=== PATIENT | male | born 1955 ===

== ENCOUNTER 2016-09-28 15:28 | Emergency (ER) | payer SELFPAY ==
--- NOTE | 2016-09-28 15:45 | ED PDOC ---
HPI: Psych/Substance Abuse Time Seen by Provider: 09/28/16 15:36 Chief Complaint (Nursing): Psychiatric Evaluation Chief Complaint (Provider): crisis eval History Per: Patient, EMS, Neuro Urologist (Lou Lester at bedside for Georgian translation) Additional Complaint(s): 61 year old male with no past medical history presents to ED for crisis eval. Patient went to [facility] today for evaluation of abdominal pain and possible high blood pressure and during evaluation he expressed that he was having problems with his family. Patient took a depression questionnaire and based on his answers, the clinic provider advised that he come to ED for crisis evaluation. Upon arrival patient denies suicidal or homicidal ideation. He does admit to having some stress in his life secondary to family problems but has no intention of harming himself or others. He went to the clinic initially for evaluation of abdominal pain for 5 days with increased flatulence. Patient also concerned that he may have high blood pressure. He states he was dizzy and had slight blurred vision 5 days ago but this has resolved and has not occurred again. Upon arrival to ED, patient denies any abd pain, chest pain, SOB, KEY, vision changes, dizziness, headache, fever, chills, vomiting or diarrhea. Past Medical History Reviewed: Historical Data, Nursing Documentation, Vital Signs Vital Signs: Last Vital Signs Temp 97.4 F L 09/28/16 15:29 Pulse 52 L 09/28/16 15:29 Resp 17 09/28/16 15:29 BP 136/87 09/28/16 15:29 Pulse Ox 98 09/28/16 15:29 - Medical History PMH: HTN - Surgical History Other surgeries: hiatal hernia repair - Family History Family History: States: No Known Family Hx - Living Arrangements Living Arrangements: With Family - Social History Current smoker - smoking cessation education provided: No Alcohol: None Drugs: Denies - Allergies Allergies/Adverse Reactions: Allergies Allergy/AdvReac Type Severity Reaction Status Date / Time No Known Allergies Allergy Verified 09/28/16 15:29 Review of Systems ROS Statement: Except As Marked, All Systems Reviewed And Found Negative Constitutional: Negative for: Fever, Chills Eyes: Negative for: Vision Change Gastrointestinal: Positive for: Abdominal Pain, Other (increased flatulence). Negative for: Nausea, Vomiting, Diarrhea Neurological: Negative for: Headache, Dizziness Psych: Positive for: Other (stressed, denies SI or HI) Physical Exam - Reviewed Nursing Documentation Reviewed: Yes Vital Signs Reviewed: Yes - Physical Exam Appears: Positive for: Well, Non-toxic, No Acute Distress Skin: Negative for: Rash Eye Exam: Positive for: Normal appearance, EOMI, PERRL Cardiovascular/Chest: Positive for: Regular Rate, Rhythm Respiratory: Positive for: Normal Breath Sounds. Negative for: Wheezing, Respiratory Distress Gastrointestinal/Abdominal: Positive for: Bowel Sounds (normoactive in all 4 quadrants), Soft, Other (obese, non-tender abdomen). Negative for: Tenderness, Distended, Guarding, Rebound Extremity: Positive for: Normal ROM. Negative for: Pedal Edema Neurologic/Psych: Positive for: Alert, Oriented - Laboratory Results Result Diagrams: 09/28/16 16:30 09/28/16 16:30 - ECG Interpretation Of ECG: Sinus april 47 bpm, no acute finding, reviewed by PA and ED attending O2 Sat by Pulse Oximetry: 98 Pulse Ox Interpretation: Normal - Other Rad KUB X-Ray: Interpreted by Me, Viewed By Me X-Ray Interpretation: moderate feces with no obstruction Medical Decision Making Medical Decision Makin61 year old sent by clinic for crisis eval. Also with abdominal pain and possible HTN BP normal Abdominal exam is benign upon arrival Plan Crisis eval CBC CMP Lipase UA KUB As per crisis counselor and psychiatrist front desk host Dr. Mary, patient does not meet criteria for psych admission. Patient is aware of all diagnostic testing results, all questions answered. Patient was advised to follow up with clinic in 2-3 days. He is aware he can return to ED if acutely worse anytime. Disposition - Clinical Impression Clinical Impression: Constipation, Depression - Patient ED Disposition Is Patient to be Admitted: No Counseled Patient/Family Regarding: Studies Performed, Diagnosis, Need For Followup - Disposition Referrals: [facility] [Outside] Disposition: Routine/Home Disposition Time: 18:23 Condition: STABLE Additional Instructions: FOLLOW UP AT: [facility] [address] [place] [address] INCREASE FIBER IN DIET. DRINK PLENTY OF WATER. FOLLOW UP WITH CLINIC. Instructions: Constipation (ED), High Fiber Diet (ED), Depression (ED) Print Language: MARTINIQUAIS Results - Lab Results Lab Results: 09/28/16 09/28/16 16:30 16:30 WBC 10.0 RBC 5.09 Hgb 15.7 Hct 46.1 MCV 90.5 MCH 30.8 MCHC 34.1 RDW 13.7 Plt Count 222 MPV 8.2 Neut % (Auto) 55.5 Lymph % (Auto) 34.9 Posey % (Auto) 7.4 Eos % (Auto) 1.7 Baso % (Auto) 0.5 Neut # 5.5 Lymph # 3.5 Posey # 0.7 Eos # 0.2 Baso # 0.0 Sodium 141 Potassium 4.0 Chloride 103 Carbon Dioxide 27 Anion Gap 15 BUN 15 Creatinine 0.9 Est GFR ( Amer) > 60 Est GFR (Non-Af Amer) > 60 Random Glucose 92 Calcium 9.5 Total Bilirubin 0.5 AST 28 ALT 51 Alkaline Phosphatase 61 Troponin I < 0.0120 Total Protein 8.1 Albumin 4.7 Globulin 3.4 Albumin/Globulin Ratio 1.4 Lipase 139
[2016-09-28 17:24] LABS: BASO % 0.5 % (0.0-2.0); EOS # 0.2 K/uL (0.0-0.7); EOS % 1.7 % (0.0-4.0); HEMOGLOBIN 15.7 g/dL (12.0-18.0); LYMPH # 3.5 K/uL (1.0-4.3); LYMPH % 34.9 % (20.0-40.0); MEAN CELL VOLUME 90.5 fl (80.0-94.0); MEAN CORPUSCULAR HEMOGLOBIN 30.8 pg (27.0-31.0); MEAN CORPUSCULAR HGB CONC 34.1 g/dL (33.0-37.0); MEAN PLATELET VOLUME 8.2 fl (7.2-11.7); MONO # 0.7 K/uL (0.0-0.8); MONO % 7.4 % (0.0-10.0); NEUT # 5.5 K/uL (1.8-7.0); NEUT % 55.5 % (50.0-75.0); NRBC % 0.1 % (0.0-0.0); RBC 5.09 Mil/uL (4.40-5.90); RED CELL DISTRIBUTION WIDTH 13.7 % (11.5-14.5)
[2016-09-28 17:50] LABS: ALB/GLOB RATIO 1.4 (1.0-2.1); ALBUMIN 4.7 g/dL (3.5-5.0); ALT/SGPT 51 U/L (21-72); AST/SGOT 28 U/L (17-59); BLOOD UREA NITROGEN 15 mg/dl (9-20); CALCIUM 9.5 mg/dL (8.4-10.2); GFR AFRICAN-AMERICAN > 60; GFR NON-AFRICAN AMERICAN > 60; LIPASE 139 U/L (23-300)
[2016-09-28 18:37] VITALS: BP 121/76; PULSE 61; RESP 16; TEMP 98.4; O2SAT 100
--- NOTE | 2016-09-29 10:20 | CARD ---
APPROVED REPORT EKG Measurement Heart [id number] <Conclusion> Sinus bradycardia Otherwise normal ECG
--- NOTE | 2016-09-29 15:13 | RAD ---
HISTORY: gas pain in abdomen COMPARISON: No prior. FINDINGS: BOWEL: Moderate amount of stool seen throughout the colon consistent with constipation. No evidence of acute mechanical bowel obstruction. Probable calcified phleboliths overlying the true pelvis bilaterally BONES: Normal. OTHER FINDINGS: None. IMPRESSION: . Findings consistent with constipation. No evidence of acute mechanical bowel obstruction.
== END 2016-09-28 18:38 | disposition home or self-care (01) ==
LOC: H.ER 15:28
DX: F32.9 Major depressive disorder, single episode, unspecified (principal); I10 Essential (primary) hypertension; K59.00 Constipation, unspecified